=== PATIENT | male | born 1965 | race Caucasian/White ===

== ENCOUNTER 2021-01-20 07:41 | Inpatient (IN) | payer MEDICAID, OTHER ==
[~2021-01-20] VITALS: Ht 180.3 cm; Wt 97.3 kg
[2021-01-20] VITALS (25 sets, daily range): BP systolic 112–158; BP diastolic 65–99
[2021-01-20] MEDS ORDERED: ANGIOMAX 250 MG VIAL IV ONE (07:50)
[2021-01-20] MEDS ORDERED: SODIUM CHL 0.9% 50 ML ONE (07:50)
[2021-01-20] MEDS ORDERED: fentaNYL CITRATE 100 MCG/2 ML VL ONE (07:50)
[2021-01-20] MEDS ORDERED: MIDAZOLAM HCL 1MG/1ML-2 ML VIAL ONE (07:50)
[2021-01-20] MEDS ORDERED: LIDOCAINE 2%HCL (LOCAL ANESTH.) INJ 20ML MDV ONE (07:53)
[2021-01-20] MEDS ORDERED: IODIXANOL 320MG/ML 100ML BTL IV ONE ×2 (07:53→08:28)
[2021-01-20] MEDS ORDERED: MORPHINE SULF INJ 2 MG/ML SYRINGE 1ML ONE (07:56)
[2021-01-20] MEDS ORDERED: ONDANSETRON HCL 4 MG/2 ML VIAL ONE (07:56)
[2021-01-20] MEDS ORDERED: HEPARIN SODIUM (PORCINE) 5000 UNITS/ML 1ML VIAL ONE (07:57)
[2021-01-20] MEDS ORDERED: ONDANSETRON HCL 4 MG/2 ML VIAL IV ONE (08:00)
[2021-01-20] MEDS ORDERED: HEPARIN SODIUM (PORCINE) 5000 UNITS/ML 1ML VIAL IV ONE (08:00)
[2021-01-20] MEDS ORDERED: MORPHINE SULF INJ 2 MG/ML SYRINGE 1ML IV ONE (08:00)
[2021-01-20] MEDS ORDERED: VERAPAMIL 2.5MG/ML INJ 2ML VIAL IV ONE (08:01)
[2021-01-20] MEDS ORDERED: ATROPINE SULF 1 MG/10ml SYR ONE (08:23)
[2021-01-20] MEDS ORDERED: EPINEPHrine HCL 1 MG/10 ML SYRG ONE (08:23)
[2021-01-20] MEDS ORDERED: ASPirin 81 mg TAB PO ONE (08:30)
[2021-01-20 08:33] LABS: Basophils # (auto) 0.1 10 ^3/uL (0-0.2); Basophils % (auto) 0.8 % (0.0-2.0); Eosinophils # (auto) 0.5 10 ^3/uL (0-0.8); Eosinophils % (auto) 5.4 % (0.0-7.0); Hematocrit 42.1 % (41.0-53.0); Hemoglobin 13.7 g/dL (13.5-17.5); Lymphocytes # (auto) 2.1 10 ^3/uL (0.4-5.4); Lymphocytes % (auto) 20.3 % (10.0-50.0); Mean Corpuscular Hgb Conc. 32.6 g/dL (32.0-36.0); Mean Corpuscular Volume 88.9 fL (80.0-100.0); Monocytes # (auto) 0.8 10 ^3/uL (0-1.3); Monocytes % (auto) 7.5 % (0.0-12.0); Neutrophils # (auto) 6.7 10 ^3/uL (1.6-8.6); Nucleated Red Blood Cells % 0.1 %; Platelet Count (auto) 360 10^3/uL (140-450); Red Blood Cells 4.74 10^6/uL (4.5-5.90); Red Cell Distribution Width 15.8 % (11.8-14.3); White Blood Cell 10.1 10^3/uL (4.4-10.8)
[2021-01-20 08:48] LABS: Albumin 3.2 g/dL (3.4-5.0); Calcium 8.7 mg/dL (8.5-10.1); Potassium 4.7 mmol/L (3.5-5.1)
[2021-01-20 08:50] LABS: INR 1.02 (0.9-1.15); Partial Thromboplastin Time 28.1 sec (23.0-31.2)
[2021-01-20 08:52] LABS: BUN/Creatinine Ratio 18.1; Bilirubin, Total 0.4 mg/dL (0.2-1.0); Total Protein 7.9 g/dL (6.4-8.2)
[2021-01-20] MEDS ORDERED: ASPirin 81 mg TAB ONE (08:55)
[2021-01-20] MEDS ORDERED: TICAGRELOR 90 MG TAB ONE (08:55)
[2021-01-20] MEDS ORDERED: NITROGLYCERIN 0.4 MG SL TAB SL PRN (09:30)
[2021-01-20] MEDS ORDERED: MORPHINE SULF INJ 2 MG/ML SYRINGE 1ML IV PRN (09:30)
[2021-01-20] MEDS ORDERED: DEXTROSE (50%) 50ML SYRG IV PRN (09:30)
[2021-01-20] MEDS ORDERED: ENALAPRIL MALEATE 2.5 MG TAB PO SCH (10:00)
[2021-01-20] MEDS: CARVEDILOL 3.125 MG TAB PO SCH ×2 (11:00→22:30)
[2021-01-20] MEDS: FAMOTIDINE 20 MG TAB PO SCH ×2 (11:00→22:00)
[2021-01-20] MEDS ORDERED: OPTISON 3ml Vial for INJ IV ONE (11:31)
[2021-01-20] MEDS: ACCU-CHEK COMFORT CURVE STRIP VI SCH ×3 (12:21→22:00)
[2021-01-20] MEDS: INSULIN LANTUS (GLARGINE) 1 /0.01ml (100units/ml) SC SCH (12:21)
[2021-01-20] MEDS: InsuLIN REG 1unit/0.01ml Soln (100units/ml) SC SCH ×3 (12:21→22:30)
[2021-01-20] MEDS ORDERED: hydrALAZINE HCL 20 MG/ML VL IV PRN (14:00)
[2021-01-20 17:47] LABS: Alcohol, Urine < 3.0 mg/dL (0-10); Amphetamine Screen, Urine X-NORESULT (NEGATIVE); Barbiturate Scree,Urine NEGATIVE (NEGATIVE); Benzodiazephine Screen, Urine X-NORESULT (NEGATIVE); Cannabinoid Screen, Urine X-NORESULT (NEGATIVE); Cocaine Screen, Urine NEGATIVE (NEGATIVE); Opiate Scree,Urine NEGATIVE (NEGATIVE); Phencyclidine Screen, Urine NEGATIVE (NEGATIVE)
[2021-01-20] MEDS ORDERED: CLOPIDOGREL 300 MG TAB PO ONE (18:00)
[2021-01-20] MEDS: NICOTINE 21MG/24 HR TOPICAL PATCH TD SCH (18:12)
[2021-01-20] MEDS: ATORVASTATIN 20 MG TAB PO SCH (22:00)
[2021-01-21] VITALS (13 sets, daily range): BP systolic 119–145; BP diastolic 67–93
[2021-01-21 05:20] LABS: Basophils # (auto) 0.1 10 ^3/uL (0-0.2); Basophils % (auto) 0.7 % (0.0-2.0); Eosinophils # (auto) 0.4 10 ^3/uL (0-0.8); Hematocrit 40.8 % (41.0-53.0); Hemoglobin 13.5 g/dL (13.5-17.5); Lymphocytes # (auto) 1.5 10 ^3/uL (0.4-5.4); Lymphocytes % (auto) 14.8 % (10.0-50.0); Mean Corpuscular Hgb Conc. 33.1 g/dL (32.0-36.0); Mean Corpuscular Volume 87.8 fL (80.0-100.0); Monocytes % (auto) 9.4 % (0.0-12.0); Neutrophils # (auto) 7.4 10 ^3/uL (1.6-8.6); Neutrophils % (auto) 71.1 % (37.0-80.0); Nucleated Red Blood Cells % 0.1 %; Platelet Count (auto) 318 10^3/uL (140-450); Red Blood Cells 4.65 10^6/uL (4.5-5.90); Red Cell Distribution Width 15.4 % (11.8-14.3); White Blood Cell 10.3 10^3/uL (4.4-10.8)
[2021-01-21 05:42] LABS: Calcium 8.9 mg/dL (8.5-10.1); Potassium 4.3 mmol/L (3.5-5.1)
[2021-01-21 05:47] LABS: Bilirubin, Total 0.6 mg/dL (0.2-1.0); Total Protein 7.3 g/dL (6.4-8.2)
[2021-01-21] MEDS: ACCU-CHEK COMFORT CURVE STRIP VI SCH ×4 (06:30→22:56)
[2021-01-21] MEDS: InsuLIN REG 1unit/0.01ml Soln (100units/ml) SC SCH ×4 (06:31→22:57)
[2021-01-21] MEDS: ENALAPRIL MALEATE 2.5 MG TAB PO SCH ×2 (07:45→10:00)
[2021-01-21] MEDS: CARVEDILOL 3.125 MG TAB PO SCH ×2 (10:00→22:55)
[2021-01-21] MEDS: INSULIN LANTUS (GLARGINE) 1 /0.01ml (100units/ml) SC SCH (10:00)
[2021-01-21] MEDS: NICOTINE 21MG/24 HR TOPICAL PATCH TD SCH (10:00)
[2021-01-21] MEDS ORDERED: ASPirin 81 mg TAB PO SCH (10:00)
[2021-01-21] MEDS ORDERED: CLOPIDOGREL BISULFATE 75 MG TAB PO SCH (10:00)
[2021-01-21] MEDS: FAMOTIDINE 20 MG TAB PO SCH ×2 (10:00→22:56)
[2021-01-21] MEDS: ATORVASTATIN 20 MG TAB PO SCH (22:55)
[2021-01-22] MEDS ORDERED: HYDROcodone-ACET 5/325MG TAB PO PRN (01:00)
[2021-01-22 05:38] VITALS: BP 128/79
[2021-01-22 05:41] VITALS: BP 128/79
[2021-01-22] MEDS: ACCU-CHEK COMFORT CURVE STRIP VI SCH (06:48)
[2021-01-22] MEDS: InsuLIN REG 1unit/0.01ml Soln (100units/ml) SC SCH (06:48)
== END 2021-01-22 08:37 | disposition left against medical advice (07) | DRG 174 ==
LOC: ER 07:41 → EDBD 07:41 → CATH 1 07:42 → OVERFLOW 07:43 → ICU WEST 10:00 → TELE-WESTW 01-21 11:49
PROVIDERS: ADMIT Internal Medicine; ATTEND Internal Medicine
PROC: 027034Z Dilation of Coronary Artery, One Artery with Drug-eluting Intraluminal Device, Percutaneous Approach (ICD-10-PCS; principal; 2021-01-20)
PROC: B211YZZ Fluoroscopy of Multiple Coronary Arteries using Other Contrast (ICD-10-PCS; 2021-01-20)
DX: I21.09 ST elevation (STEMI) myocardial infarction involving other coronary artery of anterior wall (principal); E11.22 Type 2 diabetes mellitus with diabetic chronic kidney disease; I50.22 Chronic systolic (congestive) heart failure; E78.5 Hyperlipidemia, unspecified; E66.9 Obesity, unspecified; F17.210 Nicotine dependence, cigarettes, uncomplicated; N18.2 Chronic kidney disease, stage 2 (mild); Z53.29 Procedure and treatment not carried out because of patient's decision for other reasons; I25.10 Atherosclerotic heart disease of native coronary artery without angina pectoris; Z20.822 Contact with and (suspected) exposure to COVID-19; I13.0 Hypertensive heart and chronic kidney disease with heart failure and stage 1 through stage 4 chronic kidney disease, or unspecified chronic kidney disease; Z79.4 Long term (current) use of insulin; Z71.6 Tobacco abuse counseling; Z68.30 Body mass index [BMI] 30.0-30.9, adult; E11.65 Type 2 diabetes mellitus with hyperglycemia
CPT/HCPCS: 36415; 71045; 80053; 80061; 80307; 82962; 83036; 83735; 84484; 85025; 85610; 85730; 86850; 86900; 86901; 87081; 87426; 93005; 93306; 96374; 96375; 99152; 99153; C1874; G0378; J1815; J2250; J2405; Q9956; Q9967

== ENCOUNTER 2025-04-27 14:12 | Inpatient (IN) | payer MEDICARE, MEDICAID ==
[~2025-04-27] VITALS: Ht 172.7 cm; Wt 92.9 kg
--- NOTE | 2025-04-27 14:34 | ED.PDOC ---
Time Seen by MD: 14:30 Primary Care Provider: NONE Allergies: Coded Allergies: NO KNOWN ALLERGIES (Unverified , 01/20/21) Home Meds No Active Prescriptions or Reported Meds Past Medical History PAST MEDICAL HISTORY: DM, HTN Surgical History: Denies all surgeries Social History Smoker: Cigarettes Alcohol: Denies ETOH Use Drugs: Denies Drug Use Time of 1ST Reevaluation: 15:00 Departure 1 Departure e-Prescriptions No Active Prescriptions or Reported Meds I personally scribed for NEVILLE LIZARRAGA MD ([email or web address]) on 04/27/25 at 14:34. Electronically submitted by Jennifer Poe ([email or web address]). I personally scribed for NEVILLE LIZARRAGA MD ([email or web address]) on 04/27/25 at 14:38. Electronically submitted by Jennifer Poe ([email or web address]). NEVILLE LIZARRAGA MD Apr 27, 2025 14:34
--- NOTE | 2025-04-27 14:36 | ED.PDOC ---
HPI Comments 60-YEAR-OLD MALE PRESENTS HERE FROM EMS PATIENT WAS FOUND TO BE LESS RESPONSIVE BY SON. Concern for possible syncopal episode as he is staring. EMS WAS CALLED. ON EMS ARRIVAL PATIENT WAS VERY DIAPHORETIC, AND SLEEPY AND SLOW TO RESPOND WITH SLUGGISH PUPILS. PATIENT WAS GIVEN NARCAN 2 MG IV WHICH DID STOP SWEATING. PATIENT'S STATES HE HAS BEEN SHORT OF BREATH. AND WAS DIAPHORETIC. DENIES ANY NAUSEA VOMITING DIARRHEA. STATES HE IS HAVING SOME CHEST DISCOMFORT. UNABLE TO GIVE US FURTHER DETAILS. EMS 1st EKG demonstrate acute myocardial infarction. However 2nd EKG did not. Time Seen by MD: 14:30 Primary Care Provider: NONE Reviewed Notes: Nurses Notes, Industrial Spraypainter Notes, Medications, Allergies Allergies: Coded Allergies: NO KNOWN ALLERGIES (Unverified , 01/20/21) Home Meds No Active Prescriptions or Reported Meds Information Source: Patient Mode of Arrival: EMS Severity: Moderate Timing: Minutes Duration: Since onset Prehospital treatment: None Onset: At Rest Cardiac Risk Factors: HTN, Diabetes PE Risk Factors: None History of: None Modifying Factors: Nothing Associated Signs and Symptoms: None Past Medical History PAST MEDICAL HISTORY: CAD, DM, HTN Surgical History: Denies all surgeries Social History Smoker: Cigarettes Alcohol: Denies ETOH Use Drugs: Marijuana Constitutional: reports: fatigue, sweats, weakness All Other Systems: Reviewed and Negative ( PER HPI) Physical Exam General Appearance: No Apparent Distress, Normal HEENT: Normal ENT Inspection, Pharynx Normal Neck: Full Range of Motion, Non-Tender, Normal, Normal Inspection Respiratory: Chest Non-Tender, Lungs Clear, No Accessory Muscle Use, No Respiratory Distress, Normal Breath Sounds Cardiovascular: No Edema, No Murmur, No Gallop, Normal Peripheral Pulses, Regular Rate/Rhythm Breast Exam: Deferred Gastrointestinal: No Organomegaly, Non Tender, No Pulsatile Mass, Normal Bowel Sounds, Soft Genitalia: Deferred Pelvic: Deferred Rectal: Deferred Extremities: No calf tenderness, Normal capillary refill, Normal inspection, Normal range of motion, Non-tender, No pedal edema Musculoskeletal : Apperance: Normal Neurologic: Alert, bill collector II-XII nml as Tested, No Motor Deficits, Normal Affect, Normal Mood, No Sensory Deficits Cerebellar Function: Normal Reflexes: Normal Skin: Dry, Normal Color, Warm Lymphatic: No Adenopathy EKG EKG #1: Pulse Rate (adult): 60 [place]: Normal Cardiac Rhythm: NSR Block: None Hypertrophy: None ST: Normal EKG #2: Comments EKG 2. Rate of 57 sinus rhythm. Inverted T-waves in V1 V2. Was a procedure done? Was a procedure done?: No CP Differential Dx Differential Diagnosis: Angina, AV Block 1st Degree, AV Block 2nd Degree, AV Block 3rd Degree, Electrolyte Disorder, Hypoxia, Pulmonary Embolus, Ventricular Dysrhythmia Differential Diagnosis: HTN Essential, HTN Accelerated Differential Diagnosis: Pneumonia, Pulmonary Embolus X-Ray, Labs, Meds, VS Vital Signs Date Time Temp Pulse Resp B/P (MAP) Pulse Ox O2 Delivery O2 Flow Rate FiO2 04/27/25 16:00 57 16 129/93 (105) 94 04/27/25 15:07 57 04/27/25 15:00 58 16 126/74 (91) 94 04/27/25 15:00 58 16 94 Nasal Cannula* 3 32 04/27/25 14:52 98.5 62 16 128/78 (95) 82 98.5 04/27/25 14:42 60 04/27/25 14:15 60 Lab Test 04/27/25 16:01 04/27/25 14:51 Range/Units Troponin I High Sensitivity 69 *H 66 *H </=54 ng/L White Blood Count 8.8 4.4-10.8 10^3/uL Red Blood Count 6.23 H 4.5-5.90 10^6/uL Hemoglobin 18.6 H 13.5-17.5 g/dL Hematocrit 56.0 H 41.0-53.0 % Mean Corpuscular Volume 89.9 80.0-100.0 fL Mean Corpuscular Hemoglobin 29.8 28.0-32.0 pg Mean Corpuscular Hemoglobin Concent 33.2 32.0-36.0 g/dL Red Cell Distribution Width 15.3 H 11.8-14.3 % Platelet Count 255 140-450 10^3/uL Mean Platelet Volume 9.1 6.9-10.8 fL Neutrophils (%) (Auto) 68.7 37.0-80.0 % Lymphocytes (%) (Auto) 15.6 10.0-50.0 % Monocytes (%) (Auto) 8.8 0.0-12.0 % Eosinophils (%) (Auto) 5.9 0.0-7.0 % Basophils (%) (Auto) 1.0 0.0-2.0 % Neutrophils # (Auto) 6.1 1.6-8.6 10 ^3/uL Lymphocytes # (Auto) 1.4 0.4-5.4 10 ^3/uL Monocytes # (Auto) 0.8 0-1.3 10 ^3/uL Eosinophils # (Auto) 0.5 0-0.8 10 ^3/uL Basophils # (Auto) 0.1 0-0.2 10 ^3/uL Nucleated Red Blood Cells 0.3 % Sodium Level 142 136-145 mmol/L Potassium Level 5.6 *H 3.5-5.1 mmol/L Chloride Level 109 H 98-107 mmol/L Carbon Dioxide Level 25 20-31 mmol/L Anion Gap 8 5-15 Blood Urea Nitrogen 26 H 9-23 mg/dL Creatinine 1.72 H 0.700-1.30 mg/dL Glomerular Filtration Rate Calc 45 >90 mL/min BUN/Creatinine Ratio 15.1 10.0-20.0 Serum Glucose 126 H 74-106 mg/dL Calcium Level 9.5 8.7-10.4 mg/dL Current Medications Medications (Trade) Dose Ordered Sig/Cris Route Start Time Stop Time Status Last Admin Insulin Human Regular (InsuLIN R) 5 units ONCE ONCE SC 04/27/25 16:45 04/27/25 16:46 DC 04/27/25 17:35 Dextrose 50 ml ONCE ONCE IV 04/27/25 17:30 04/27/25 17:31 DC 04/27/25 17:34 Zirconium Oxide (Lokelma) 10 gm ONCE ONCE PO 04/27/25 17:30 04/27/25 17:31 DC 04/27/25 17:34 60-year-old male presents here status with episode of altered consciousness.. Patient was found to be less responsive than normal upon son entering his room. EMS was called. At that time patient was found to be diaphoretic and pale. He was given Narcan 2 mg IV which did help his diaphoresis. At this time patient is A&O x4 on my evaluation. Able to answer all questions. However blood work does demonstrate some abnormalities with a potassium of 5.6 and creatinine of 1.72. At this time I have given him Lokelma and insulin glucose. EKG normal sinus rhythm with no significant ST change it. There was concern that he may be an acute AK based on EMS initial read. However on my initial EKG there was no evidence of acute AK. troponin is slightly elevated at 66. At this time hospitalist team has been contacted for admission. Time of 1ST Reevaluation: 15:00 Reevaluation 1ST: Unchanged Patient Education/Counseling: Diagnosis, Treatment Family Education/Counseling: No Family Present Departure 1 Departure Time of Disposition: 16:30 Impression: Primary Impression: Marijuana use Additional Impressions: Hyperkalemia Acute kidney injury Altered level of consciousness Disposition: ADMITTED INPATIENT Condition: Fair e-Prescriptions No Active Prescriptions or Reported Meds Critical Care Note Critical Care Time?: No Stability Stability form required: No Heart Score Heart Score: Heart Score Response (Comments) Value History Slightly Suspicious 0 EKG Repolarization Disturb 1 Age 45-64 1 Risk Factors >3 or Hx ASHD 2 Troponin 1-2 x's Normal limit 1 Total 5 I personally scribed for NEVILLE LIZARRAGA MD ([email or web address]) on 04/27/25 at 14:42. Electronically submitted by Jennifer Poe ([email or web address]). NEVILLE LIZARRAGA MD Apr 27, 2025 14:36
[2025-04-27 15:00] VITALS: PULSE 58; RESP 16; O2SAT 94
[2025-04-27 15:27] LABS: Basophils # (auto) 0.1 10 ^3/uL (0-0.2); Eosinophils # (auto) 0.5 10 ^3/uL (0-0.8); Eosinophils % (auto) 5.9 % (0.0-7.0); Hemoglobin 18.6 g/dL (13.5-17.5); Lymphocytes # (auto) 1.4 10 ^3/uL (0.4-5.4); Lymphocytes % (auto) 15.6 % (10.0-50.0); Mean Corpuscular Hemoglobin 29.8 pg (28.0-32.0); Mean Corpuscular Hgb Conc. 33.2 g/dL (32.0-36.0); Mean Corpuscular Volume 89.9 fL (80.0-100.0); Monocytes # (auto) 0.8 10 ^3/uL (0-1.3); Monocytes % (auto) 8.8 % (0.0-12.0); Neutrophils # (auto) 6.1 10 ^3/uL (1.6-8.6); Neutrophils % (auto) 68.7 % (37.0-80.0); Nucleated Red Blood Cells % 0.3 %; Platelet Count (auto) 255 10^3/uL (140-450); Red Blood Cells 6.23 10^6/uL (4.5-5.90); Red Cell Distribution Width 15.3 % (11.8-14.3); White Blood Cell 8.8 10^3/uL (4.4-10.8)
[2025-04-27 15:45] LABS: Sodium 142 mmol/L (136-145)
[2025-04-27 15:46] LABS: Anion Gap 8 (5-15); Carbon Dioxide 25 mmol/L (20-31)
--- NOTE | 2025-04-27 15:46 | DVH ---
EXAM: XY CHEST XRAY 1 VIEW TECHNIQUE: Single frontal chest radiograph CLINICAL HISTORY: CHEST PAIN, SHORTNESS OF BREATH COMPARISON: CHEST PORTABLE on DOS: 01/21/21, CHEST PORTABLE on DOS: 01/20/21 Findings/Impression: Frontal chest radiograph demonstrates no acute osseous or superficial soft tissue abnormalities. The trachea is midline. The cardiac silhouette and mediastinum are within normal limits. Bibasilar atelectasis versus developing infection, [id number]-left. No pneumothorax or pleural effusions.
[2025-04-27 15:47] LABS: Calcium 9.5 mg/dL (8.7-10.4)
[2025-04-27 15:52] LABS: BUN/Creatinine Ratio 15.1 (10.0-20.0)
[2025-04-27 16:07] LABS: Blood Urea Nitrogen 26 mg/dL (9-23); Chloride 109 mmol/L (98-107); Glucose 126 mg/dL (74-106)
[2025-04-27 16:10] LABS: Potassium 5.6 mmol/L (3.5-5.1)
--- NOTE | 2025-04-27 16:10 | ECG ---
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
[2025-04-27] MEDS: SODIUM ZIRCONIUM CYCL 10 GM PAK PO ONE (17:34)
[2025-04-27] MEDS: DEXTROSE (50%) 50ML SYRG IV ONE (17:34)
[2025-04-27] MEDS: InsuLIN REG 1unit/0.01ml Soln (100units/ml) SC ONE (17:35)
--- NOTE | 2025-04-27 19:11 | ECG ---
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
[2025-04-27 19:22] VITALS: PULSE 60; RESP 21; O2SAT 93
[2025-04-27] MEDS ORDERED: ACETAMINOPHEN 325 MG TAB PO PRN (19:45)
[2025-04-27] MEDS ORDERED: DOCUSATE SOD 100 MG CAP PO PRN (19:45)
[2025-04-27] MEDS ORDERED: ONDANSETRON HCL 4 MG/2 ML VIAL IV PRN (19:45)
[2025-04-27] MEDS ORDERED: DEXTROSE (50%) 50ML SYRG IV PRN (19:45)
[2025-04-27] MEDS ORDERED: HYDROcodone-ACET 5/325MG TAB PO PRN (19:45)
[2025-04-27] MEDS: ASPirin 81 mg TAB PO ONE (20:36)
[2025-04-27] MEDS: ACCU-CHEK COMFORT CURVE STRIP VI SCH (21:51)
[2025-04-27] MEDS: InsuLIN REG 1unit/0.01ml Soln (100units/ml) SC SCH (21:54)
[2025-04-27] MEDS: SODIUM CHLOR 0.9% PF (SALINE LOCK) 10ML VIAL/SYR IV SCH (21:54)
--- NOTE | 2025-04-27 22:11 | DVHHP2 ---
History of Present Illness Reason for Visit: Altered level of consciousness History of Present Illness The patient is a 60-year-old male with past medical history of Coronary artery disease, DM, and hypertension who presented to [facility] ED for evaluation of altered level of consciousness. As reported, when EMS arrived on the scene, patient was very diaphoretic, sleepy, slow to respond with sluggish pupils and was given Narcan 2 mg IV EN route to our facility ED. patient was seen and evaluated in the ED, laboratory data shows WBC 8.8, hemoglobin 18.6, h ematocrit 56.0, platelets 255, sodium 142, potassium 5.6, BUN 26, creatinine 1.72, glucose 126, GFR 45, troponin 66 trending down, blood pressure 147/81, heart rate 64, temperature 98.5 F, O2 saturation 94% on oxygen. Patient was given aspirin 325 mg p.o. x1, please see medication orders section in the computer. On my assessment, patient denied chest pain, no headache, no dizzines s, currently on oxygen, no diaphoresis at this moment, no nausea, no vomiting, no fever, no chills. Patient was admitted for further evaluation and medical management. Past Medical History CAD, DM, HTN Past Surgical History Denies all surgeries Family History Reviewed, noncontributory to the management of this case. Past Social History The patient lives at home, denies alcohol use, smokes cigarettes, uses marijuan a. Review of Systems Constitutional: Yes: Weakness, Other (Fatigue); No: Fever, Chills, Sweats, Malaise Eyes: No: Pain, Vision change, Conjunctivae inflammation, Eyelid inflammation, Other, Redness ENT: No: Ear pain, Ear discharge, Nose pain, Nose discharge, Nose congestion, Mouth pain, Mouth swelling, Throat pain, Throat swelling, Other Respiratory: No: Cough, Dry, Shortness of breath, SOB with excertion, Wheezing, Hemoptysis, Pleuritic Pain, Sputum, Wheezing, Other Cardiovascular: No: Chest Pain, Palpitations, Orthopnea, Paroxysmal Noc. Dyspnea, Edema, Lt Headedness, Other Gastrointestinal: No: Nausea, Vomiting, Abdominal Pain, Diarrhea, Constipation, Melena, Hematochezia, Other Genitourinary: No Dysuria, No Frequency, No Incontinence, No Hematuria, No Retention, No Other Musculoskeletal: No: other, neck pain, shoulder pain, arm pain, back pain, hand pain, leg pain, foot pain Skin: No: Rash, Lesions, Jaundice, Bruising, Other Neurological: Confusion, Other (Altered level of consciousness); No: Weakness, Numbness, Incoordination, Change in speech, Seizures Allergies: Coded Allergies: NO KNOWN ALLERGIES (Unverified , 01/20/21) Medications Current Medications Medications Dose Ordered Sig/Cris Route Start Time Stop Time Status Last Admin Dose Admin Aspirin 81 mg DAILY PO 04/28/25 10:00 Hydralazine HCl 10 mg Q6HP PRN IV 04/27/25 19:45 Diagnostic Test (Pha) 1 strip ACHS 04/27/25 22:00 04/27/25 21:51 1 STRIP Insulin Human Regular ACHS SC 04/27/25 22:00 04/27/25 21:54 3 UNITS Dextrose 50 ml UD PRN IV 04/27/25 19:45 Sodium Chloride 10 ml Q8HR IV 04/27/25 22:00 04/27/25 21:54 10 ML Acetaminophen/ Hydrocodone Bitart 1 tab Q4HP PRN PO 04/27/25 19:45 Ondansetron HCl 4 mg Q4HP PRN IV 04/27/25 19:45 Docusate Sodium 100 mg BIDPRN PRN PO 04/27/25 19:45 Acetaminophen 650 mg Q6HP PRN PO 04/27/25 19:45 Exam Vital Signs Vital Signs Date Time Temp Pulse Resp B/P (MAP) Pulse Ox O2 Delivery O2 Flow Rate FiO2 04/27/25 19:22 60 21 93 Nasal Cannula* 3 32 04/27/25 19:22 98.0 137/73 (94) 98.0 General Appearance: Alert, Oriented X3, Cooperative, No acute distress HEENT: Atraumatic, PERRLA, EOMI, Mucous membr. moist/pink Respiratory: Normal air movement Cardiovascular: Regular rate, Normal S1, Normal S2, No murmurs Abdominal: Normal bowel sounds, Soft, No tenderness, No hepatospenomegaly, No masses Extremities: No clubbing, No cyanosis, No edema, Normal pulses, No tenderness/swelling Skin: No rashes, No breakdown, No significant lesion Neuro: Normal speech, Normal tone, Sensation intact, Cranial nerves 3-12 NL, Reflexes 2+, Other (Generalized weakness) Psych/Mental Status: Mental status NL, Mood NL Labs/Xrays Labs Test 04/27/25 21:50 04/27/25 21:20 04/27/25 17:53 04/27/25 14:51 Range/Units POC Glucose 170 H 70-106 mg/dl Potassium Level 3.9 3.5-5.1 mmol/L Troponin I High Sensitivity 55 *H </=54 ng/L White Blood Count 8.8 4.4-10.8 10^3/uL Red Blood Count 6.23 H 4.5-5.90 10^6/uL Hemoglobin 18.6 H 13.5-17.5 g/dL Hematocrit 56.0 H 41.0-53.0 % Mean Corpuscular Volume 89.9 80.0-100.0 fL Mean Corpuscular Hemoglobin 29.8 28.0-32.0 pg Mean Corpuscular Hemoglobin Concent 33.2 32.0-36.0 g/dL Red Cell Distribution Width 15.3 H 11.8-14.3 % Platelet Count 255 140-450 10^3/uL Mean Platelet Volume 9.1 6.9-10.8 fL Neutrophils (%) (Auto) 68.7 37.0-80.0 % Lymphocytes (%) (Auto) 15.6 10.0-50.0 % Monocytes (%) (Auto) 8.8 0.0-12.0 % Eosinophils (%) (Auto) 5.9 0.0-7.0 % Basophils (%) (Auto) 1.0 0.0-2.0 % Neutrophils # (Auto) 6.1 1.6-8.6 10 ^3/uL Lymphocytes # (Auto) 1.4 0.4-5.4 10 ^3/uL Monocytes # (Auto) 0.8 0-1.3 10 ^3/uL Eosinophils # (Auto) 0.5 0-0.8 10 ^3/uL Basophils # (Auto) 0.1 0-0.2 10 ^3/uL Nucleated Red Blood Cells 0.3 % Sodium Level 142 136-145 mmol/L Chloride Level 109 H 98-107 mmol/L Carbon Dioxide Level 25 20-31 mmol/L Anion Gap 8 5-15 Blood Urea Nitrogen 26 H 9-23 mg/dL Creatinine 1.72 H 0.700-1.30 mg/dL Glomerular Filtration Rate Calc 45 >90 mL/min BUN/Creatinine Ratio 15.1 10.0-20.0 Serum Glucose 126 H 74-106 mg/dL Calcium Level 9.5 8.7-10.4 mg/dL PATIENT: DARREL HERR ACCT: [id number] UNIT: [id number] : 1965 LOC: ER ROOM / BED: / AGE / SEX: 60 / M ADM STATUS: REG ER SERVICE 1431 ORDERING PHYSICIAN: NEVILLE LIZARRAGA MD PROCEDURE(s): CXR1 - CHEST XRAY 1 VIEW REASON: CHEST PAIN, SHORTNESS OF BREATH ORDER NUMBER(s): [id number], ACCESSION NUMBER(s): [id number] EXAM: XY CHEST XRAY 1 VIEW TECHNIQUE: Single frontal chest radiograph CLINICAL HISTORY: CHEST PAIN, SHORTNESS OF BREATH COMPARISON: CHEST PORTABLE on DOS: 01/21/21, CHEST PORTABLE on DOS: 01/20/21 Findings/Impression: Frontal chest radiograph demonstrates no acute osseous or superficial soft tissue abnormalities. The trachea is midline. The cardiac silhouette and mediastinum are within normal limits. Bibasilar atelectasis versus developing infection, [id number]-left. No pneumothorax or pleural effusions. Assessment/Plan Assessment/Plan Altered level of consciousness Acute kidney injury Marijuana use Hyperkalemia Generalized weakness Plan 1. Admit to telemetry unit 2. Breathing treatment 3. Pain control management 4. Management of fluids and electrolytes 5. Consultation for Nephrology/hospitalist 6. Diagnostic tests chest x-ray 7. DVT prophylaxis-on aspirin 8. Repeat labs CBC, CMP in a.m. 9. Continue with current medical management 10. Treatment plan discussed with patient and RN. Patient verbalized understanding. Plan discussed with: Patient, Other (RN) My Orders Orders - DI PRYOR DNP Procedure Category Date Status Time Consistent DIET 04/28/25 Transmitted Carb(Ccho)Diabetes Breakfast Aspirin Tablet PHA 04/28/25 In Process 10:00 Hydralazine Injection PHA 04/27/25 In Process (Apresoline Inject 19:45 Glucose Blood PHA 04/27/25 In Process (Accu-Chek Comfort 22:00 Insulin R (Human) PHA 04/27/25 In Process (Insulin R) 22:00 Dextrose 50% Syringe PHA 04/27/25 In Process 19:45 Allergies AAYUSH 04/27/25 In Process 19:34 Code Status CODE 04/27/25 Transmitted 19:34 Sodium Chloride Lock PHA 04/27/25 In Process (Saline Lock Ns) 22:00 Oxygen Per Hour RT 04/27/25 Transmitted 19:34 Hydrocodone-Acet PHA 04/27/25 In Process 5/325mg Tab (Triplett 19:45 Ondansetron Hcl PHA 04/27/25 In Process (Zofran) 19:45 Docusate Sodium PHA 04/27/25 In Process Capsule (Colace 19:45 Fall Risk Precautions AAYUSH 04/27/[address] 19:34 Complete Blood Count LAB 04/28/25 Verified 04:00 Comprehensive LAB 04/28/25 Verified Metabolic Panel 04:00 Condition: Serious AAYUSH 04/27/25 In Process 19:34 Acetaminophen Tablet PHA 04/27/25 In Process (Tylenol Tablet) 19:45 Maintain Bed Rest AAYUSH 04/27/25 In Process 19:34 Sequential AAYUSH 04/27/25 In Process Compression Device Problem List: (1) Altered level of consciousness (2) Acute kidney injury (3) Marijuana use (4) Hyperkalemia (5) Generalized weakness Date of Service: Apr 27, 2025 Billing Provider: DI PRYOR DNP Common Visit Codes: [id number] INP/OBS CARE (HIGH) DI PRYOR DNP Apr 27, 2025 22:11
[2025-04-27] MEDS ORDERED: NITROGLYCERIN 0.4 MG SL TAB SL PRN (22:15)
[2025-04-27] MEDS ORDERED: MORPHINE SULFATE 4 MG/ML SYR/VIAL IV PRN (22:15)
[2025-04-28] VITALS (9 sets, daily range): BP systolic 103–164; BP diastolic 68–86; PULSE 58–75; RESP 16–20; TEMP 97.5–99; O2SAT 92–99
[2025-04-28] MEDS: hydrALAZINE HCL 20 MG/ML VL IV PRN (01:07)
[2025-04-28 05:16] LABS: Eosinophils # (auto) 0.3 10 ^3/uL (0-0.8); Eosinophils % (auto) 3.1 % (0.0-7.0); Hemoglobin 17.8 g/dL (13.5-17.5); Lymphocytes # (auto) 1.6 10 ^3/uL (0.4-5.4); Nucleated Red Blood Cells % 0.3 %
[2025-04-28 05:19] LABS: Basophils # (auto) 0.1 10 ^3/uL (0-0.2); Basophils % (auto) 0.7 % (0.0-2.0); Hematocrit 53.9 % (41.0-53.0); Lymphocytes % (auto) 16.4 % (10.0-50.0); Mean Corpuscular Hemoglobin 29.5 pg (28.0-32.0); Mean Corpuscular Volume 89.4 fL (80.0-100.0); Monocytes % (auto) 10.3 % (0.0-12.0); Neutrophils # (auto) 6.7 10 ^3/uL (1.6-8.6); Neutrophils % (auto) 69.5 % (37.0-80.0); Platelet Count (auto) 212 10^3/uL (140-450); Red Blood Cells 6.03 10^6/uL (4.5-5.90); Red Cell Distribution Width 15.3 % (11.8-14.3); White Blood Cell 9.6 10^3/uL (4.4-10.8)
[2025-04-28 05:38] LABS: Alanine Aminotransferase 22 U/L (7-40); Anion Gap 9 (5-15); Aspartate Aminotransferase 15 U/L (13-40); BUN/Creatinine Ratio 16.6 (10.0-20.0); Calcium 9.3 mg/dL (8.7-10.4); Carbon Dioxide 25 mmol/L (20-31); Glucose 98 mg/dL (74-106); Potassium 4.3 mmol/L (3.5-5.1); Sodium 141 mmol/L (136-145); Total Protein 6.8 g/dL (5.7-8.2)
[2025-04-28 05:39] LABS: Bilirubin, Total 0.5 mg/dL (0.2-1.0)
[2025-04-28 05:44] LABS: Alkaline Phosphatase 122 U/L (46-116); Blood Urea Nitrogen 25 mg/dL (9-23); Chloride 107 mmol/L (98-107)
[2025-04-28] MEDS: ASPirin 81 mg TAB PO SCH (08:47)
[2025-04-28] MEDS ORDERED: FURO20TA3 PO (08:56)
[2025-04-28] MEDS ORDERED: ASPI325T6 PO (08:56)
[2025-04-28] MEDS ORDERED: GLIP10TA9 PO (08:57)
[2025-04-28] MEDS ORDERED: GABA-1250 PO (08:57)
[2025-04-28] MEDS ORDERED: CLOP75TA70 PO (08:59)
[2025-04-28] MEDS ORDERED: LISI10TA34 PO (08:59)
[2025-04-28] MEDS ORDERED: CARV-216 PO (08:59)
[2025-04-28] MEDS ORDERED: AML5T PO (09:04)
--- NOTE | 2025-04-28 14:47 | DVHPN2 ---
Reviewed: Care Plan, H&P, Labs, Medications, Previous Orders, Radiology Changes from previous H/P or p: No Changes Eyes: No Pain, No Vision change, No Conjunctivae inflammation, No Eyelid inflammation, No Other, No Redness ENT: No Ear pain, No Ear discharge, No Nose pain, No Nose discharge, No Nose congestion, No Mouth pain, No Mouth swelling, No Throat pain, No Throat swelling, No Other Cardiovascular: No Chest Pain, No Palpitations, No Orthopnea, No Paroxysmal Noc. Dyspnea, No Edema, No Lt Headedness, No Other Respiratory: No Cough, No Dry, No Shortness of breath, No SOB with excertion, No Wheezing, No Hemoptysis, No Pleuritic Pain, No Sputum, No Other Gastrointestinal: No Nausea, No Vomiting, No Abdominal Pain, No Diarrhea, No Constipation, No Melena, No Hematochezia, No Other Genitourinary: No Dysuria, No Frequency, No Incontinence, No Hematuria, No Retention, No Other Musculoskeletal: No other, No neck pain, No shoulder pain, No arm pain, No back pain, No hand pain, No leg pain, No foot pain Skin: No Rash, No Lesions, No Jaundice, No Bruising, No Other Objective Vitals Vital Signs Date Time Temp Pulse Resp B/P (MAP) Pulse Ox O2 Delivery O2 Flow Rate FiO2 04/28/25 13:29 99.0 60 18 130/68 (88) 94 99.0 04/28/25 08:00 Room Air* 0 21 Intake/Output Intake and Output 04/28/25 07:00 Intake Total 200 ml Output Total 0 ml Balance 200 ml Intake Oral 200 ml Output Urine Total 0 ml Medications Current Medications Medications Dose Ordered Sig/Cris Route Start Time Stop Time Status Last Admin Dose Admin Aspirin 81 mg DAILY PO 04/28/25 10:00 04/28/25 08:47 81 MG Hydralazine HCl 10 mg Q6HP PRN IV 04/27/25 19:45 04/28/25 01:07 10 MG Diagnostic Test (Pha) 1 strip ACHS 04/27/25 22:00 04/28/25 11:59 1 STRIP Insulin Human Regular ACHS SC 04/27/25 22:00 04/28/25 12:01 2 UNITS Dextrose 50 ml UD PRN IV 04/27/25 19:45 Sodium Chloride 10 ml Q8HR IV 04/27/25 22:00 04/28/25 08:47 10 ML Acetaminophen/ Hydrocodone Bitart 1 tab Q4HP PRN PO 04/27/25 19:45 Ondansetron HCl 4 mg Q4HP PRN IV 04/27/25 19:45 Docusate Sodium 100 mg BIDPRN PRN PO 04/27/25 19:45 Acetaminophen 650 mg Q6HP PRN PO 04/27/25 19:45 Nitroglycerin 0.4 mg Q5MINP PRN SL 04/27/25 22:15 Morphine Sulfate 2 mg Q30M PRN IV 04/27/25 22:15 Laboratory Results Laboratory Tests 04/28/25 04:24 Chemistry Test 04/27/25 14:51 04/28/25 04:24 Calcium Level 9.5 mg/dL (8.7-10.4) 9.3 mg/dL (8.7-10.4) Albumin 4.0 g/dL (3.2-4.8) Total Protein 6.8 g/dL (5.7-8.2) LFT Test 04/28/25 04:24 Alanine Aminotransferase (ALT) 22 U/L (7-40) Alkaline Phosphatase 122 U/L (46-116) H Aspartate Amino Transferase (AST) 15 U/L (13-40) Total Bilirubin 0.5 mg/dL (0.2-1.0) Labs and/or images reviewed: Labs reviewed by me, Image(s) reviewed by me Assessment/Plan Assessment/Plan Sepsis Secondary to cellulitis of the face: Blood cultures vancomycin Rocephin Acute generalized weakness with elevated troponin rule out coronary artery disease: Consult for Cardiology Dr. Zafar Berman Altered level of consciousness Acute kidney injury BUN and creatinine 26 and 1.72: Consult for Dr. Henriquez Acute hyperkalemia potassium 5.6 treated per hyperkalemia protocol now resolved Marijuana use History of coronary artery disease Diabetes: Insulin sliding scale Hypertension Time spent 55 minutes Advanced care planning time 20 minutes Patient is full code Plan discussed with: Patient My Orders Orders - NYDIA CHANG MD Procedure Category Date Status Time * Cardiology Consult CONS 04/28/25 Transmitted 14:37 *Dr. Henriquez Group CONS 04/28/25 Transmitted -[place] 14:38 Date of Service: Apr 28, 2025 Billing Provider: NYDIA CHANG MD Common Visit Codes: [id number] INP/OBS CARE(HIGH) NYDIA CHANG MD Apr 28, 2025 14:47
[2025-04-28] MEDS ORDERED: VANCOMYCIN PER PHARMACY 0 MG IV SCH (15:00)
[2025-04-28] MEDS: cefTRIAXone 1GM/50ML D5W 50 ML IV ONE (16:43)
[2025-04-28] MEDS: VANCOMYCIN 1.75GM/350ML 350 ML IV ONE (17:27)
--- NOTE | 2025-04-28 18:20 | DVHINCON2 ---
Date Seen: Apr 28, 2025 Referring Physician MD Arley Reason for Consultation Generalized weakness, elevated troponin and cardiac risk factors History of Present Illness This is a 60-year-old male patient who presents to emergency room with chief complaint of altered level of consciousness. According to the patient, he began having shortness of breath which then led him to become confused. The patient's son called EMS and the patient was brought to emergency room for further evaluation. Cardiology has been consulted at this time regarding elevated troponin level. Initial twelve lead electrocardiogram reveals sinus rhythm with artifact (poor quality EKG). Initial troponin level of 66ng/L with flat trend thereafter. Significant past medical history includes coronary artery disease status post PTCA x 1 YANE to LAD, congestive heart failure, hypertension, dyslipidemia, COPD, type 2 diabetes mellitus, obesity and tobacco use. Of note, the patient was seen at this facility on 01/20/2021 as a code STEMI and underwent an emergent coronary angiogram with left heart catheterization in which one drug-eluting stent was placed to the distal LAD. 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 Past Medical History Past medical history reviewed. No other significant than mentioned above. Past Surgical History Denies any previous surgeries Family History: Cardiovascular disease G8 FATHER FH: emphysema G8 MOTHER Family History Family history reviewed. Social History Patient has a 25 pack-year history, smokes one pack per day Denies any alcohol use Denies any drug use Allergies: Coded Allergies: NO KNOWN ALLERGIES (Unverified , 01/20/21) Home Meds Reported Medications Amlodipine Besylate (NORVASC TABLET) 5 Mg Tb, 2.5 MG PO DAILY, TAB 04/28/25 Clopidogrel Bisulfate (CLOPIDOGREL) 75 Mg Tab, 75 MG PO DAILY for 30 Days, MG 04/28/25 Lisinopril (Lisinopril) 10 Mg Tab, 10 MG PO DAILY for 30 Days, MG 04/28/25 Carvedilol (COREG) 12.5 Mg Tab, 6.25 MG PO BID, TAB 04/28/25 Gabapentin (Gabapentin) 300 Mg Cap, 300 MG PO HS for 30 Days, MG 04/28/25 Glipizide (Glipizide) 10 Mg Tab, 10 MG PO ONCE for 30 Days, MG 04/28/25 Aspirin (Aspirin) 325 Mg Tab, 81 MG PO DAILY for 30 Days, MG 04/28/25 Furosemide (Furosemide) 20 Mg Tab, 20 MG PO DAILY for 30 Days, MG 04/28/25 Home Meds Home medications reviewed. Current Medications Current Medications Medications (Trade) Dose Ordered Sig/Cris Route PRN Reason Start Time Stop Time Status Last Admin Aspirin 81 mg DAILY PO 04/28/25 10:00 04/28/25 08:47 Hydralazine HCl (Apresoline Injection) 10 mg Q6HP PRN IV SBP>150 04/27/25 19:45 04/28/25 01:07 Diagnostic Test (Pha) (Accu-Chek Comfort Curve T) 1 strip ACHS 04/27/25 22:00 04/28/25 11:59 Insulin Human Regular (InsuLIN R) ACHS SC 04/27/25 22:00 04/28/25 12:01 Dextrose 50 ml UD PRN IV Blood Sugar LESS THAN 60 04/27/25 19:45 Sodium Chloride (Saline Lock Ns) 10 ml Q8HR IV 04/27/25 22:00 04/28/25 08:47 Acetaminophen/ Hydrocodone Bitart ([place] 5/325MG Tab) 1 tab Q4HP PRN PO MODERATE PAIN (4-6 PAIN SCALE) 04/27/25 19:45 Ondansetron HCl (Zofran) 4 mg Q4HP PRN IV NAUSEA / VOMITING 04/27/25 19:45 Docusate Sodium (Colace Capsule) 100 mg BIDPRN PRN PO FOR CONSTIPATION 04/27/25 19:45 Acetaminophen (Tylenol Tablet) 650 mg Q6HP PRN PO PAIN SCALE 1-3 OR TEMP>100.4 04/27/25 19:45 Nitroglycerin (Ntrostat Sublingual) 0.4 mg Q5MINP PRN SL FOR CHEST PAIN 04/27/25 22:15 Morphine Sulfate 2 mg Q30M PRN IV FOR CHEST PAIN 04/27/25 22:15 Ceftriaxone Sodium 50 ml @ 100 mls/hr DAILY@09 IV 04/29/25 09:00 Vancomycin HCl 0 ml @ 0 mls/hr UD IV 04/28/25 15:00 Review of Systems Constitutional: No symptom reported Ears, Nose, & Throat: No symptom reported Eyes: No symptom reported Neurological: Altered level of mentation Pulmonary/Respiratory: No symptoms reported Cardiovascular: No symptom reported Gastrointestinal: No symptom reported Genitourinary: No symptom reported Musculoskeletal: No symptom reported Skin: No symptom reported Psychiatric: No symptom reported Endocrine: No symptom reported Hematologic/Lymphatic: No symptom reported Vital Signs Vital Signs Date Time Temp Pulse Resp B/P (MAP) Pulse Ox O2 Delivery O2 Flow Rate FiO2 04/28/25 13:29 99.0 60 18 130/68 (88) 94 99.0 04/28/25 08:00 Room Air* 0 21 Physical Exam General Appearance: Cooperative. Morbidly obese Pulmonary/Respiratory: Clear, bilateral breaths sounds. Cardiovascular/Chest: Regular rate and rhythm. Peripheral Pulses: 2+ Radial (R). 2+ Radial (L). Abdominal Exam: Normal bowel sounds. Ankle Exam: Negative ankle edema Lower extremities: Negative lower extremity edema Neuro/Mental Status: A/OX4, coherent. Thoughts/Psych: Normal thought pattern. Appropriate mood and affect. Good judgment and insight. Appearance: No acute distress. Skin Exam: Normal inspection. Normal color. Warm and dry. Labs/Diagnostic Data Labs Test 04/28/25 11:47 04/28/25 04:24 04/27/25 17:53 Range/Units POC Glucose 141 H 70-106 mg/dl White Blood Count 9.6 4.4-10.8 10^3/uL Red Blood Count 6.03 H 4.5-5.90 10^6/uL Hemoglobin 17.8 H 13.5-17.5 g/dL Hematocrit 53.9 H 41.0-53.0 % Mean Corpuscular Volume 89.4 80.0-100.0 fL Mean Corpuscular Hemoglobin 29.5 28.0-32.0 pg Mean Corpuscular Hemoglobin Concent 33.0 32.0-36.0 g/dL Red Cell Distribution Width 15.3 H 11.8-14.3 % Platelet Count 212 140-450 10^3/uL Mean Platelet Volume 9.2 6.9-10.8 fL Neutrophils (%) (Auto) 69.5 37.0-80.0 % Lymphocytes (%) (Auto) 16.4 10.0-50.0 % Monocytes (%) (Auto) 10.3 0.0-12.0 % Eosinophils (%) (Auto) 3.1 0.0-7.0 % Basophils (%) (Auto) 0.7 0.0-2.0 % Neutrophils # (Auto) 6.7 1.6-8.6 10 ^3/uL Lymphocytes # (Auto) 1.6 0.4-5.4 10 ^3/uL Monocytes # (Auto) 1.0 0-1.3 10 ^3/uL Eosinophils # (Auto) 0.3 0-0.8 10 ^3/uL Basophils # (Auto) 0.1 0-0.2 10 ^3/uL Nucleated Red Blood Cells 0.3 % Sodium Level 141 136-145 mmol/L Potassium Level 4.3 3.5-5.1 mmol/L Chloride Level 107 98-107 mmol/L Carbon Dioxide Level 25 20-31 mmol/L Anion Gap 9 5-15 Blood Urea Nitrogen 25 H 9-23 mg/dL Creatinine 1.51 H 0.700-1.30 mg/dL Glomerular Filtration Rate Calc 52 >90 mL/min BUN/Creatinine Ratio 16.6 10.0-20.0 Serum Glucose 98 74-106 mg/dL Calcium Level 9.3 8.7-10.4 mg/dL Total Bilirubin 0.5 0.2-1.0 mg/dL Aspartate Amino Transferase (AST) 15 13-40 U/L Alanine Aminotransferase (ALT) 22 7-40 U/L Alkaline Phosphatase 122 H 46-116 U/L Total Protein 6.8 5.7-8.2 g/dL Albumin 4.0 3.2-4.8 g/dL Troponin I High Sensitivity 55 *H </=54 ng/L Assessment NSTEMI, likely type 2 Coronary artery disease status post PTCA x 1 YANE to LAD (on Plavix and aspirin) History of HFrEF, NYHA class III Hypertension Dyslipidemia Hyperkalemia COPD Type 2 diabetes mellitus Chronic kidney disease Tobacco use Obesity Plan/Recommendation We will continue with following plan/recommendations (Dr. Berman): We will proceed with obtaining a transthoracic echocardiogram to evaluate cardiac function. The patient denies any cardiac symptoms at time of assessment. Initiate guideline directed medical therapy for CHF as renal function permits. Hold JUNE inhibitor and MRA (spironolactone) given hyperkalemia and elevated creatinine level. Continue dual antiplatelet therapy with Plavix and aspirin. Continue lipid-lowering agent. Close cardiac surveillance. Further recommendations per clinical course and progression. Thank you for allowing us to care for this patient. Please call with any questions or concerns. Critical care time spent: 44 minutes This medical document was created using an electronic medical record system with voice recognition software and computerized dictation system. Although this document has been carefully reviewed, there might still be some phonetic and typographical errors. Occasional wrong-word or ``sound-alike substitutions may have occurred due to the inherent limitations of voice recognition software. These areas are purely typographical due to imperfections of the software programs and do not reflect any compromise in the patient's medical care. Please read the chart carefully and recognize, using context, where these substitutions have occurred. Plan discussed with: Patient NYHA Physical activity limitations: Class3(Marked) ordinary Date of Service: Apr 28, 2025 Billing Provider: ELMO SOLORIO Cardiology Common Codes: 75103-VTCUJWN INP/OBS CARE (High) Cardiology Consultation Codes: [id number] CONSULT <45MIN ELMO SOLORIO Apr 28, 2025 18:20
[2025-04-28 19:44] LABS: Base Excess -1.9 mmol/L (-2.0-3.0)
[2025-04-28] MEDS: ATORVASTATIN 20 MG TAB PO SCH (22:08)
--- NOTE | 2025-04-28 23:05 | DVHINCON2 ---
Date Seen: Apr 28, 2025 Referring Physician MD Arley Reason for Consultation Generalized weakness, elevated troponin and cardiac risk factors History of Present Illness This is a 60-year-old male with a past medical history of coronary artery disease status post PTCA x 1 YANE to LAD, congestive heart failure, hypertension, dyslipidemia, COPD, type 2 diabetes mellitus, obesity and tobacco use who presents to emergency room with a complaint of altered level of consciousness. According to the patient, he began having shortness of breath which then led him to become confused. Patient's son st woods states he called EMS and the patient was brought to emergency room for further evaluation. Cardiology has been consulted at this time regarding elevated troponin level. Initial twelve lead electrocardiogram reveals sinus rhythm with artifact (poor quality EKG). Initial troponin level of 66ng/L with flat trend thereafter. Chest x-ray shows bibasilar atelectasis versus developing infection, [id number]. No pneumothorax or pleural effusions. Of note, the patient was seen at this facility on 01/20/2021 as a code STEMI and underwent an emergent coronary angiogram with left heart catheterization in which one drug-eluting stent was placed to the distal LAD. Somehow, the patient denies establishing a car diologist in the outpatient setting. Past Medical History Past medical history reviewed. No other significant than mentioned above. Past Surgical History Denies any previous surgeries Family History: Cardiovascular disease G8 FATHER FH: emphysema G8 MOTHER Allergies: Coded Allergies: NO KNOWN ALLERGIES (Unverified , 01/20/21) Home Meds Reported Medications Amlodipine Besylate (NORVASC TABLET) 5 Mg Tb, 2.5 MG PO DAILY, TAB 04/28/25 Clopidogrel Bisulfate (CLOPIDOGREL) 75 Mg Tab, 75 MG PO DAILY for 30 Days, MG 04/28/25 Lisinopril (Lisinopril) 10 Mg Tab, 10 MG PO DAILY for 30 Days, MG 04/28/25 Carvedilol (COREG) 12.5 Mg Tab, 6.25 MG PO BID, TAB 04/28/25 Gabapentin (Gabapentin) 300 Mg Cap, 300 MG PO HS for 30 Days, MG 04/28/25 Glipizide (Glipizide) 10 Mg Tab, 10 MG PO ONCE for 30 Days, MG 04/28/25 Aspirin (Aspirin) 325 Mg Tab, 81 MG PO DAILY for 30 Days, MG 04/28/25 Furosemide (Furosemide) 20 Mg Tab, 20 MG PO DAILY for 30 Days, MG 04/28/25 Current Medications Current Medications Medications (Trade) Dose Ordered Sig/Cris Route PRN Reason Start Time Stop Time Status Last Admin Aspirin 81 mg DAILY PO 04/28/25 10:00 04/28/25 08:47 Hydralazine HCl (Apresoline Injection) 10 mg Q6HP PRN IV SBP>150 04/27/25 19:45 04/28/25 01:07 Diagnostic Test (Pha) (Accu-Chek Comfort Curve T) 1 strip ACHS 04/27/25 22:00 04/28/25 17:00 Insulin Human Regular (InsuLIN R) ACHS SC 04/27/25 22:00 04/28/25 17:58 Dextrose 50 ml UD PRN IV Blood Sugar LESS THAN 60 04/27/25 19:45 Sodium Chloride (Saline Lock Ns) 10 ml Q8HR IV 04/27/25 22:00 04/28/25 08:47 Acetaminophen/ Hydrocodone Bitart ([place] 5/325MG Tab) 1 tab Q4HP PRN PO MODERATE PAIN (4-6 PAIN SCALE) 04/27/25 19:45 Ondansetron HCl (Zofran) 4 mg Q4HP PRN IV NAUSEA / VOMITING 04/27/25 19:45 Docusate Sodium (Colace Capsule) 100 mg BIDPRN PRN PO FOR CONSTIPATION 04/27/25 19:45 Acetaminophen (Tylenol Tablet) 650 mg Q6HP PRN PO PAIN SCALE 1-3 OR TEMP>100.4 04/27/25 19:45 Nitroglycerin (Ntrostat Sublingual) 0.4 mg Q5MINP PRN SL FOR CHEST PAIN 04/27/25 22:15 Morphine Sulfate 2 mg Q30M PRN IV FOR CHEST PAIN 04/27/25 22:15 Ceftriaxone Sodium 50 ml @ 100 mls/hr DAILY@09 IV 04/29/25 09:00 Vancomycin HCl 0 ml @ 0 mls/hr UD IV 04/28/25 15:00 Metoprolol Succinate (Toprol Xl) 25 mg DAILY PO 04/29/25 10:00 UNV Empaglifozin ([place]) 10 mg DAILY PO 04/29/25 10:00 UNV Clopidogrel Bisulfate (Plavix) 75 mg DAILY PO 04/29/25 10:00 UNV Atorvastatin Calcium (Lipitor) 80 mg HS PO 04/28/25 22:00 UNV Review of Systems Constitutional: No symptom reported Ears, Nose, & Throat: No symptom reported Eyes: No symptom reported Neurological: Altered level of mentation Pulmonary/Respiratory: No symptoms reported Cardiovascular: No symptom reported Gastrointestinal: No symptom reported Genitourinary: No symptom reported Musculoskeletal: No symptom reported Skin: No symptom reported Psychiatric: No symptom reported Endocrine: No symptom reported Hematologic/Lymphatic: No symptom reported Vital Signs Vital Signs Date Time Temp Pulse Resp B/P (MAP) Pulse Ox O2 Delivery O2 Flow Rate FiO2 04/28/25 17:00 98.3 58 20 161/86 (111) 92 98.3 04/28/25 08:00 Room Air* 0 21 Physical Exam GENERAL: Alert and oriented x 3. No acute distress. Morbid obesity. EYES: PERRL, EOMI. Anicteric. HENT: Moist mucous membranes. LUNGS: Clear to auscultation bilaterally. CARDIOVASCULAR: Regular rate and rhythm. ABDOMEN: Soft, nontender and nondistended. EXTREMITIES: No edema. NEUROLOGIC: No focal neurological deficits. SKIN: Warm, dry. Labs/Diagnostic Data Labs Test 04/28/25 17:31 04/28/25 04:24 04/27/25 17:53 Range/Units POC Glucose 154 H 70-106 mg/dl White Blood Count 9.6 4.4-10.8 10^3/uL Red Blood Count 6.03 H 4.5-5.90 10^6/uL Hemoglobin 17.8 H 13.5-17.5 g/dL Hematocrit 53.9 H 41.0-53.0 % Mean Corpuscular Volume 89.4 80.0-100.0 fL Mean Corpuscular Hemoglobin 29.5 28.0-32.0 pg Mean Corpuscular Hemoglobin Concent 33.0 32.0-36.0 g/dL Red Cell Distribution Width 15.3 H 11.8-14.3 % Platelet Count 212 140-450 10^3/uL Mean Platelet Volume 9.2 6.9-10.8 fL Neutrophils (%) (Auto) 69.5 37.0-80.0 % Lymphocytes (%) (Auto) 16.4 10.0-50.0 % Monocytes (%) (Auto) 10.3 0.0-12.0 % Eosinophils (%) (Auto) 3.1 0.0-7.0 % Basophils (%) (Auto) 0.7 0.0-2.0 % Neutrophils # (Auto) 6.7 1.6-8.6 10 ^3/uL Lymphocytes # (Auto) 1.6 0.4-5.4 10 ^3/uL Monocytes # (Auto) 1.0 0-1.3 10 ^3/uL Eosinophils # (Auto) 0.3 0-0.8 10 ^3/uL Basophils # (Auto) 0.1 0-0.2 10 ^3/uL Nucleated Red Blood Cells 0.3 % Sodium Level 141 136-145 mmol/L Potassium Level 4.3 3.5-5.1 mmol/L Chloride Level 107 98-107 mmol/L Carbon Dioxide Level 25 20-31 mmol/L Anion Gap 9 5-15 Blood Urea Nitrogen 25 H 9-23 mg/dL Creatinine 1.51 H 0.700-1.30 mg/dL Glomerular Filtration Rate Calc 52 >90 mL/min BUN/Creatinine Ratio 16.6 10.0-20.0 Serum Glucose 98 74-106 mg/dL Calcium Level 9.3 8.7-10.4 mg/dL Total Bilirubin 0.5 0.2-1.0 mg/dL Aspartate Amino Transferase (AST) 15 13-40 U/L Alanine Aminotransferase (ALT) 22 7-40 U/L Alkaline Phosphatase 122 H 46-116 U/L Total Protein 6.8 5.7-8.2 g/dL Albumin 4.0 3.2-4.8 g/dL Troponin I High Sensitivity 55 *H </=54 ng/L Assessment NSTEMI, likely type 2. Coronary artery disease status post PTCA x 1 YANE to LAD (on Plavix and aspirin). History of HFrEF, NYHA class III. Hypertension. Dyslipidemia. Hyperkalemia. COPD. Type 2 diabetes mellitus. Chronic kidney disease. Tobacco use. Obesity. Plan/Recommendation I agree with your ongoing assessment and care of plan. Patient has been seen by Irma Galeano NP on my behalf, we have discussed the plan with the patient. We will proceed with obtaining a transthoracic echocardiogram to evaluate cardiac function. The patient denies any cardiac symptoms at time of assessment. Initiate guideline directed medical therapy for CHF as renal function permits. Hold JUNE inhibitor and MRA (spironolactone) given hyperkalemia and elevated creatinine level. Continue dual antiplatelet therapy with Plavix and aspirin. Continue lipid-lowering agent. Close cardiac surveillance. Further recommendations per clinical course and progression. Additional plan as per the hospital course. Plan discussed with: Patient NYHA Physical activity limitations: Class3(Marked) ordinary Date of Service: Apr 28, 2025 Billing Provider: STEVE SMITH MD Cardiology Common Codes: 56935-[id number] INP/OBS CARE (High) Cardiology Consultation Codes: [id number] CONSULT <45MIN STEVE SMITH MD Apr 28, 2025 18:23
[2025-04-29 01:00] VITALS: BP 157/87; PULSE 75; RESP 16; TEMP 98.1; O2SAT 96
[2025-04-29] MEDS ORDERED: cefTRIAXone 1GM/50ML D5W 50 ML IV SCH (09:00)
--- NOTE | 2025-04-29 09:23 | DVHDS2 ---
Discharge Summary Date of Admission Apr 27, 2025 at 22:10 Date of Discharge: Apr 28, 2025 Admitting Diagnosis Chest pain Wounds: None Labs/Diagnostic Data: Laboratory Results Test 04/28/25 21:27 04/28/25 19:28 04/28/25 04:24 04/27/25 17:53 POC Glucose 180 mg/dl (70-106) Blood Gas Specimen Type Arterial Blood Gas Sample Site Right radial Blood Gas Patient Temperature 37.0 Arterial Blood Date Drawn [id number] Arterial Blood pH 7.421 (7.350-7.450) Arterial Blood Partial Pressure CO2 33.9 mmHg (35.0-48.0) Arterial Blood Partial Pressure O2 61.2 mmHg (83.0-108.0) Arterial Blood HCO3 21.5 mmol/L (21.0-28.0) Arterial Blood Oxygen Saturation 90.6 % (94.0-98.0) Arterial Blood Base Excess -1.9 mmol/L (-2.0-3.0) Arterial Blood Oxyhemoglobin 89.0 % (94.0-98.0) Arterial Blood Carboxyhemoglobin 1.3 % (0.5-1.5) Arterial Blood Methemoglobin 0.5 % (0.0-1.5) Jose Guadalupe Test Yes Blood Gas Total Hemoglobin 18.20 g/dL (13.5-17.5) Blood Gas Modality Room air FiO2 % 21.0 Specimen Drawn By Blood Gas Critical Value Read Back Yes Blood Gas Notified merlin Dunaway Blood Gas Notified Time [id number] Blood Gas Notified By White Blood Count 9.6 10^3/uL (4.4-10.8) Red Blood Count 6.03 10^6/uL (4.5-5.90) Hemoglobin 17.8 g/dL (13.5-17.5) Hematocrit 53.9 % (41.0-53.0) Mean Corpuscular Volume 89.4 fL (80.0-100.0) Mean Corpuscular Hemoglobin 29.5 pg (28.0-32.0) Mean Corpuscular Hemoglobin Concent 33.0 g/dL (32.0-36.0) Red Cell Distribution Width 15.3 % (11.8-14.3) Platelet Count 212 10^3/uL (140-450) Mean Platelet Volume 9.2 fL (6.9-10.8) Neutrophils (%) (Auto) 69.5 % (37.0-80.0) Lymphocytes (%) (Auto) 16.4 % (10.0-50.0) Monocytes (%) (Auto) 10.3 % (0.0-12.0) Eosinophils (%) (Auto) 3.1 % (0.0-7.0) Basophils (%) (Auto) 0.7 % (0.0-2.0) Neutrophils # (Auto) 6.7 10 ^3/uL (1.6-8.6) Lymphocytes # (Auto) 1.6 10 ^3/uL (0.4-5.4) Monocytes # (Auto) 1.0 10 ^3/uL (0-1.3) Eosinophils # (Auto) 0.3 10 ^3/uL (0-0.8) Basophils # (Auto) 0.1 10 ^3/uL (0-0.2) Nucleated Red Blood Cells 0.3 % Sodium Level 141 mmol/L (136-145) Potassium Level 4.3 mmol/L (3.5-5.1) Chloride Level 107 mmol/L (98-107) Carbon Dioxide Level 25 mmol/L (20-31) Anion Gap 9 (5-15) Blood Urea Nitrogen 25 mg/dL (9-23) Creatinine 1.51 mg/dL (0.700-1.30) Glomerular Filtration Rate Calc 52 mL/min (>90) BUN/Creatinine Ratio 16.6 (10.0-20.0) Serum Glucose 98 mg/dL (74-106) Calcium Level 9.3 mg/dL (8.7-10.4) Total Bilirubin 0.5 mg/dL (0.2-1.0) Aspartate Amino Transferase (AST) 15 U/L (13-40) Alanine Aminotransferase (ALT) 22 U/L (7-40) Alkaline Phosphatase 122 U/L (46-116) Total Protein 6.8 g/dL (5.7-8.2) Albumin 4.0 g/dL (3.2-4.8) Troponin I High Sensitivity 55 ng/L (</=54) Other Laboratory Tests 04/28/25 04:24 Brief Hx & Hospital Course: 60-year-old male with a history of hypertension hypercholesterolemia COPD diabetes chronic smoker came in for chest pain. History of coronary artery disease status post PTCA to LAD on Plavix and aspirin. Troponin borderline elevated 66. Seen by Cardiology Dr.M. Berman. History of marijuana abuse. Echocardiogram pending. Meanwhile patient decided to leave AMA and left AMA. Consequences and complications including possible explained to the patient and he verbalized understanding. General condition satisfactory at the time of leaving AMA per nurse's notes Consults/Reason for consult Cardiology Dr. Zafar Berman Operations or Procedures Echocardiogram pending Condition at Discharge: Fair Final Diagnosis/Problems List NSTEMI, likely type 2. Coronary artery disease status post PTCA x 1 YANE to LAD (on Plavix and aspirin). History of HFrEF, NYHA class III. Hypertension. Dyslipidemia. Hyperkalemia. COPD. Type 2 diabetes mellitus. Chronic kidney disease. Tobacco use. Obesity. Discharge Disposition: AMA 39 (Time taken for discharge summary 36 minutes) Discharge Statement: "Patient was advised to return to the ER or call 911 if any headaches, dizziness, shortness of breath, chest pain, abdominal pain, bleeding, fevers, or worsening of medical condition. Patient was counseled about treatment plan, medications, possible side effects, patientverbalized understanding. All questions were answered to the best of my ability. This discharge took greater then 30 minutes in planning, reviewing documentation, counseling the patient, and discussing with other team members." ASSESSMENT ASSESSMENT Hospital Course Patient left AMA Assessment Date of Service: Apr 29, 2025 Billing Provider: NYDIA CHANG MD Common Visit Codes: 14849-NCA/OBS DISCH DAY >30min NYDIA CHANG MD Apr 29, 2025 09:23
[2025-04-29] MEDS ORDERED: EMPAGLIFLOZIN 10 MG TAB PO SCH (10:00)
[2025-04-29] MEDS ORDERED: CLOPIDOGREL BISULFATE 75 MG TAB PO SCH (10:00)
[2025-04-29] MEDS ORDERED: METOPROLOL SUCCINATE XL 50 MG TAB PO SCH (10:00)
--- NOTE | 2025-04-30 00:21 | DVHPN2 ---
Progress Note - Dictate Date Seen: Apr 29, 2025 Medical Necessity Reason Pt with a Central, PICC or Fol: No Subjective Patient was seen and evaluated in follow up. No overnight events. Patient resting in bed. Echocardiogram is ordered/pending. Prelim blood cultures are negative. Telemetry reviewed. vital signs Vital Sign Date Time Temp Pulse Resp B/P (MAP) Pulse Ox O2 Delivery O2 Flow Rate FiO2 04/29/25 01:00 98.1 75 16 157/87 (110) 96 98.1 04/28/25 20:00 Room Air* 0 21 objective GENERAL: Alert and oriented x 3. No acute distress. Morbid obesity. EYES: PERRL, EOMI. Anicteric. HENT: Moist mucous membranes. LUNGS: Clear to auscultation bilaterally. CARDIOVASCULAR: Regular rate and rhythm. ABDOMEN: Soft, nontender and nondistended. EXTREMITIES: No edema. NEUROLOGIC: No focal neurological deficits. SKIN: Warm, dry. laboratory and microbiology Laboratory Tests 04/28/25 04:24 Test 04/28/25 04:24 Range/Units Serum Glucose 98 74-106 mg/dL Problem List NSTEMI, likely type 2. Coronary artery disease status post PTCA x 1 YANE to LAD (on Plavix and aspirin). History of HFrEF, NYHA class III. Hypertension. Dyslipidemia. Hyperkalemia. COPD. Type 2 diabetes mellitus. Chronic kidney disease. Tobacco use. Obesity. Assessment/Plan Continued all current supportive medical care. Morphine and [place] for pain. Aspirin, Lipitor, Plavix. IV antibiotics as ordered. Additional plan as per the hospital course. Plan discussed with: Patient STEVE SMITH MD Apr 30, 2025 00:21
== END 2025-04-29 02:36 | disposition left against medical advice (07) | DRG 640 ==
LOC: EDUNIT# 14:12 → ER 14:12 → EDBD 14:12 → OVERFLOW 22:10 → TELE-EAST 22:11
PROVIDERS: ADMIT Nurse Practitioner Family; ATTEND Nurse Practitioner Family
DX: E87.5 Hyperkalemia (principal); I21.A1 Myocardial infarction type 2; J96.01 Acute respiratory failure with hypoxia; N17.9 Acute kidney failure, unspecified; I50.22 Chronic systolic (congestive) heart failure; I13.0 Hypertensive heart and chronic kidney disease with heart failure and stage 1 through stage 4 chronic kidney disease, or unspecified chronic kidney disease; L03.211 Cellulitis of face; Z53.29 Procedure and treatment not carried out because of patient's decision for other reasons; E66.9 Obesity, unspecified; E11.22 Type 2 diabetes mellitus with diabetic chronic kidney disease; J44.9 Chronic obstructive pulmonary disease, unspecified; F12.90 Cannabis use, unspecified, uncomplicated; N18.9 Chronic kidney disease, unspecified; I25.10 Atherosclerotic heart disease of native coronary artery without angina pectoris; F17.210 Nicotine dependence, cigarettes, uncomplicated; E78.00 Pure hypercholesterolemia, unspecified; Z95.5 Presence of coronary angioplasty implant and graft; Z82.5 Family history of asthma and other chronic lower respiratory diseases; Z82.49 Family history of ischemic heart disease and other diseases of the circulatory system; Z79.82 Long term (current) use of aspirin; Z79.899 Other long term (current) drug therapy; Z68.33 Body mass index [BMI] 33.0-33.9, adult
CPT/HCPCS: 36415; 36600; 71045; 80048; 80053; 82805; 82962; 84132; 84484; 85025; 87040; 93005; 96372; 96374; G0378; J1815

== ENCOUNTER → 2025-11-08 | Outpatient (CLI) | payer MEDICAID ==
[~2025-11-08] MED LIST: AML5T PO; ASPI325T6 PO; CARV-216 PO; CLOP75TA70 PO; FURO20TA3 PO; GABA-1250 PO; GLIP10TA9 PO; LISI10TA34 PO
[2025-11-08 13:32] LABS: Hematocrit 48.3 % (41.0-53.0); Hemoglobin 15.6 g/dL (13.5-17.5); Mean Corpuscular Hemoglobin 30.4 pg (28.0-32.0); Mean Corpuscular Volume 94.1 fL (80.0-100.0); Nucleated Red Blood Cells % 0.1 %
[2025-11-08 13:54] LABS: Alanine Aminotransferase 22 U/L (7-40); Albumin 4.1 g/dL (3.2-4.8); Anion Gap 5 (5-15); BUN/Creatinine Ratio 16.4 (10.0-20.0); Bilirubin, Total 0.4 mg/dL (0.2-1.0); Calcium 8.8 mg/dL (8.7-10.4); Carbon Dioxide 27 mmol/L (20-31); Sodium 140 mmol/L (136-145); Total Protein 7.3 g/dL (5.7-8.2)
[2025-11-08 13:55] LABS: Alkaline Phosphatase 126 U/L (46-116); Blood Urea Nitrogen 24 mg/dL (9-23); Chloride 108 mmol/L (98-107); Glucose 205 mg/dL (74-106); Potassium 5.3 mmol/L (3.5-5.1)
== END | disposition home or self-care (01) ==
LOC: LAB 13:00
PROVIDERS: ATTEND Student in an Organized Health Care Education/Training Program
DX: I10 Essential (primary) hypertension (principal); E11.9 Type 2 diabetes mellitus without complications; R35.1 Nocturia
CPT/HCPCS: 36415; 80053; 83036; 84153; 84443; 85025